=== PATIENT | female | born 1955 | race African-American/Black ===

== ENCOUNTER 2021-04-08 15:04 | Inpatient (IN) | payer OTHER, MEDICAID ==
[~2021-04-08] VITALS: Ht 165.1 cm; Wt 70.3 kg
[2021-04-08] MEDS ORDERED: ONDANSETRON HCL 4MG/2ML INJ IV STA (15:33)
[2021-04-08] MEDS ORDERED: MORPHINE SULFATE 4 MG/ML CPJ (NOT FOR IM USE) IV STA (15:33)
[2021-04-08] MEDS ORDERED: DEXAMETHASONE 10 MG/ML VIAL IV ONE (15:45)
[2021-04-08] MEDS ORDERED: SODIUM CHLORIDE 0.9% 1,000 ML IV ONE (15:45)
[2021-04-08 16:28] LABS: HEMATOCRIT. 36.8 % (36.0-48.0); HEMOGLOBIN. 12.3 g/dL (12.0-16.0); MEAN CORPUSCULAR HEMOGLOBIN 28.2 pg (28.0-32.0); MEAN CORPUSCULAR VOLUME 84.7 fL (81.0-99.0); MEAN PLATELET VOLUME 7.6 fl (7.4-10.4); PLATELET 352 x1000/uL (130-400); RED BLOOD CELL COUNT 4.35 mill/uL (4.2-5.4); RED CELL DISTRIBUTION WIDTH 15.3 % (11.6-14.6)
[2021-04-08 16:35] LABS: CHLORIDE 88 mEq/L (98-107)
[2021-04-08 16:36] LABS: INR 1.2; PROTHROMBIN TIME 12.3 sec (9.6-11.0)
[2021-04-08] MEDS ORDERED: INSULIN REGULAR (HUMULIN R) 300UNITS/3ML VIAL SUBCUT NR (17:00)
[2021-04-08] MEDS ORDERED: SODIUM CHLORIDE 0.9% 1000ML BAG (SEPSIS BOLUS) IV ONE (17:00)
[2021-04-08] MEDS ORDERED: AZITHROMYCIN 500MG/250ML 250 ML IV NR (17:00)
[2021-04-08] MEDS ORDERED: POTASSIUM CHLORIDE 20MEQ TABLET SR PO NR (17:00)
[2021-04-08] MEDS ORDERED: CEFTRIAXONE 1 G PREMIX 50 ML IV NR (17:00)
[2021-04-08 17:04] LABS: NUCLEATED RED BLOOD CELLS 1 /100 WBC; PLATELET ESTIMATE NORMAL
[2021-04-08 17:33] LABS: CLARITY URINE CLOUDY (CLEAR); COLOR URINE RED (YELLOW); KETONES URINE TRACE (NEGATIVE); LEUKOCYTE ESTERASE URINE 1+ (NEGATIVE); NITRITE URINE NEGATIVE (NEGATIVE); OCCULT BLOOD URINE 3+ (NEGATIVE); PROTEIN URINE 2+ (NEGATIVE); SPECIFIC GRAVITY URINE 1.022 (1.005-1.030)
[2021-04-08] MEDS: DEXT 5%/LACTATED RINGERS 1,000 ML IV SCH (20:15)
[2021-04-08 23:40] VITALS: BP 198/111
[2021-04-09] VITALS (7 sets, daily range): BP systolic 153–198; BP diastolic 74–113
[2021-04-09] MEDS ORDERED: DEXAMETHASONE 10 MG/ML VIAL IV SCH
[2021-04-09] MEDS ORDERED: ACETAMINOPHEN 325MG TABLET PO PRN (00:15)
[2021-04-09] MEDS ORDERED: DEXTROSE 50% WATER 50ML SYRINGE IV PRN (00:15)
[2021-04-09] MEDS ORDERED: NALOXONE HCL 0.4 MG/ML 1ML VIAL IV PRN (00:30)
[2021-04-09] MEDS: MORPHINE SULFATE 2 MG/ML CPJ (NOT FOR IM USE) IV PRN ×4 (00:39→20:42)
[2021-04-09] MEDS ORDERED: ZOLPIDEM TARTRATE 5MG TABLET PO PRN (01:00)
[2021-04-09] MEDS: CLONIDINE 0.1MG TABLET PO PRN (01:05)
[2021-04-09] MEDS: DEXAMETHASONE 10 MG/ML VIAL IV SCH ×3 (05:32→17:33)
[2021-04-09] MEDS: DEXT 5%/LACTATED RINGERS 1,000 ML IV SCH (05:32)
[2021-04-09] MEDS: PANTOPRAZOLE 40MG DR TABLET PO SCH (06:10)
[2021-04-09] MEDS: BLOOD SUGAR DIAGNOSTIC STRIP TEST SCH ×4 (06:11→21:19)
[2021-04-09] MEDS: INSULIN LISPRO 100 UNITS/ML SUBCUT SCH ×5 (06:11→21:20)
[2021-04-09 07:10] LABS: CHLORIDE 92 mEq/L (98-107)
[2021-04-09 07:21] LABS: LDL CHOLESTEROL 51 mg/dL (5-100)
[2021-04-09 07:23] LABS: HDL CHOLESTEROL 61 mg/dL (40-59)
[2021-04-09 07:27] LABS: HEMATOCRIT 36.4 % (36.0-48.0); HEMOGLOBIN 12.3 g/dL (12.0-16.0); MEAN CORPUSCULAR HEMOGLOBIN 28.7 pg (28.0-32.0); MEAN CORPUSCULAR VOLUME 84.6 fL (81.0-99.0); PLATELET 322 x1000/uL (130-400); RED BLOOD CELL COUNT 4.31 mill/uL (4.2-5.4); RED CELL DISTRIBUTION WIDTH 14.9 % (11.6-14.6)
[2021-04-09] MEDS: METOPROLOL TARTRATE 50MG TABLET PO SCH ×2 (08:33→20:42)
[2021-04-09] MEDS ORDERED: AMLODIPINE 10MG TABLET PO SCH (09:00)
[2021-04-09] MEDS ORDERED: ENOXAPARIN 40MG/0.4ML SYR SUBCUT SCH (09:00)
[2021-04-09] MEDS: INSULIN GLARGINE UD 100 UNITS/ML SYR SUBCUT SCH ×2 (09:33→21:20)
[2021-04-09] MEDS ORDERED: GADOTERATE MEGLUMINE 5 MMOL/10 ML VIAL IV ONE (11:01)
[2021-04-09] MEDS ORDERED: PNEUMOCOCCAL 23-VAL P-SAC VAC 0.5 ML IM ONE (12:00)
[2021-04-09] MEDS: CEFTRIAXONE 1,000 MG in DEXTROSE 5% WATER 50 ML IV SCH (12:29)
[2021-04-09] MEDS: DILTIAZEM HCL 60MG TABLET PO SCH (17:33)
[2021-04-09] MEDS: SODIUM CHLORIDE 0.9% 1,000 ML IV SCH (17:38)
[2021-04-10] VITALS (42 sets, daily range): BP systolic 97–161; BP diastolic 31–80
[2021-04-10] MEDS: DILTIAZEM HCL 60MG TABLET PO SCH ×2 (00:35→06:00)
[2021-04-10] MEDS: CLONIDINE 0.1MG TABLET PO PRN (00:35)
[2021-04-10] MEDS: DEXAMETHASONE 10 MG/ML VIAL IV SCH ×2 (00:39→06:10)
[2021-04-10] MEDS: MORPHINE SULFATE 2 MG/ML CPJ (NOT FOR IM USE) IV PRN ×4 (00:49→21:19)
[2021-04-10] MEDS ORDERED: LIDOCAINE HCL/EPINEPHRINE 1%-EPI 1:100,000 20 ML VIAL ONE ×2 (05:58→10:00)
[2021-04-10] MEDS ORDERED: THROMBIN (BOVINE) 5000 UNITS/VIAL TOP ONE (05:58)
[2021-04-10] MEDS: SODIUM CHLORIDE 0.9% 1,000 ML IV SCH ×2 (06:09→16:17)
[2021-04-10] MEDS: BLOOD SUGAR DIAGNOSTIC STRIP TEST SCH ×4 (06:15→20:53)
[2021-04-10] MEDS: PANTOPRAZOLE 40MG DR TABLET PO SCH (06:16)
[2021-04-10] MEDS: INSULIN LISPRO 100 UNITS/ML SUBCUT SCH ×4 (06:16→21:20)
[2021-04-10] MEDS ORDERED: GENTAMICIN SULF 40MG/ML 2ML VIAL ONE ×2 (06:23→08:08)
[2021-04-10 07:53] LABS: HEMATOCRIT. 32.2 % (36.0-48.0); HEMOGLOBIN. 10.7 g/dL (12.0-16.0); MEAN CORPUSCULAR VOLUME 84.4 fL (81.0-99.0); MEAN PLATELET VOLUME 8.1 fl (7.4-10.4); PLATELET 299 x1000/uL (130-400); RED BLOOD CELL COUNT 3.81 mill/uL (4.2-5.4); RED CELL DISTRIBUTION WIDTH 15.1 % (11.6-14.6)
[2021-04-10 08:00] LABS: CHLORIDE 96 mEq/L (98-107)
[2021-04-10] MEDS: METOPROLOL TARTRATE 50MG TABLET PO SCH ×2 (09:00→20:53)
[2021-04-10] MEDS ORDERED: DEXT 5%/LACTATED RINGERS 1,000 ML IV SCH (10:00)
[2021-04-10] MEDS ORDERED: NICARDIPINE 100 MG in SODIUM CHLORIDE 0.9% 60 ML IV PRN (10:00)
[2021-04-10] MEDS ORDERED: KETAMINE HCL 50 MG/ML 10ML ONE (10:02)
[2021-04-10] MEDS ORDERED: ACETAMINOPHEN 500MG TABLET ONE (10:06)
[2021-04-10] MEDS ORDERED: PROPOFOL 10MG/ML 100ML 100 ML IV ONE (10:07)
[2021-04-10] MEDS ORDERED: NICARDIPINE 40MG/200ML PREMIX 200 ML IV ONE (10:08)
[2021-04-10] MEDS ORDERED: ONDANSETRON HCL 4MG/2ML INJ ONE (10:20)
[2021-04-10] MEDS ORDERED: METOCLOPRAMIDE HCL 10MG/2ML VIAL ONE (10:20)
[2021-04-10] MEDS ORDERED: PHENYLEPHRINE HCL 10 MG/ML 1ML (IV VIAL) IV ONE (10:22)
[2021-04-10] MEDS ORDERED: FENTANYL CITRATE/PF 50MCG/ML 2ML VIAL ONE (10:30)
[2021-04-10] MEDS ORDERED: LIDOCAINE HCL 1% 10 MG/ML 10ML VIAL ONE (10:30)
[2021-04-10] MEDS ORDERED: MAGNESIUM 2 G PREMIX 50 ML IV SCH (11:00)
[2021-04-10] MEDS ORDERED: DEXAMETHASONE 4MG/ML 1ML VIAL ONE (11:01)
[2021-04-10] MEDS: DILTIAZEM HCL 90MG TABLET PO SCH ×2 (12:00→17:10)
[2021-04-10] MEDS ORDERED: GLYCOPYRROLATE 0.2 MG/ML 2ML VIAL ONE (12:09)
[2021-04-10] MEDS ORDERED: NEOSTIGMINE METHYLSULFATE 1MG/ML 10 ML VIAL ONE (12:09)
[2021-04-10] MEDS ORDERED: LIDOCAINE HCL 2% JELLY 5ML ONE (12:19)
[2021-04-10] MEDS ORDERED: CALCIUM CHLORIDE 1GM/10ML SYR IV ONE (12:27)
[2021-04-10] MEDS ORDERED: FAMOTIDINE 20MG/2ML VIAL IV NR (13:15)
[2021-04-10] MEDS ORDERED: CEFAZOLIN SODIUM 1000MG/VIAL IV SCH (14:00)
[2021-04-10] MEDS: HYDROMORPHONE HCL/PF 2MG/ML CPJ IV PRN ×3 (16:00→23:22)
[2021-04-10] MEDS: CEFTRIAXONE 1,000 MG in DEXTROSE 5% WATER 50 ML IV SCH (16:13)
[2021-04-10] MEDS: INSULIN GLARGINE UD 100 UNITS/ML SYR SUBCUT SCH ×2 (16:15→21:19)
[2021-04-10] MEDS: DEXAMETHASONE 4MG/ML 1ML VIAL IV SCH ×3 (16:17→23:21)
[2021-04-10] MEDS ORDERED: IPRATROPIUM/ALBUTEROL 0.5-3(2.5)MG/3ML NEB HHN PRN (16:45)
[2021-04-10 17:00] LABS: PLATELET ESTIMATE NORMAL
[2021-04-10] MEDS: CEFAZOLIN 1000MG PREMIX 50 ML IV SCH (17:21)
[2021-04-11] VITALS (82 sets, daily range): BP systolic 91–159; BP diastolic 21–135
[2021-04-11] MEDS: CEFAZOLIN 1000MG PREMIX 50 ML IV SCH ×3 (02:03→17:45)
[2021-04-11] MEDS: SODIUM CHLORIDE 0.9% 1,000 ML IV SCH ×3 (02:04→20:29)
[2021-04-11] MEDS: HYDROMORPHONE HCL/PF 2MG/ML CPJ IV PRN ×6 (02:11→21:20)
[2021-04-11] MEDS: DILTIAZEM HCL 90MG TABLET PO SCH ×5 (05:40→23:44)
[2021-04-11] MEDS: BLOOD SUGAR DIAGNOSTIC STRIP TEST SCH ×4 (05:41→21:02)
[2021-04-11] MEDS: PANTOPRAZOLE 40MG DR TABLET PO SCH (05:41)
[2021-04-11 05:57] LABS: CHLORIDE 103 mEq/L (98-107)
[2021-04-11] MEDS: DEXAMETHASONE 4MG/ML 1ML VIAL IV SCH ×4 (06:07→23:44)
[2021-04-11 06:08] LABS: HEMATOCRIT. 28.9 % (36.0-48.0); HEMOGLOBIN. 9.6 g/dL (12.0-16.0); MEAN CORPUSCULAR HEMOGLOBIN 28.8 pg (28.0-32.0); MEAN CORPUSCULAR VOLUME 86.5 fL (81.0-99.0); MEAN PLATELET VOLUME 7.8 fl (7.4-10.4); PLATELET 298 x1000/uL (130-400); RED BLOOD CELL COUNT 3.35 mill/uL (4.2-5.4)
[2021-04-11] MEDS: INSULIN LISPRO 100 UNITS/ML SUBCUT SCH ×4 (06:09→21:07)
[2021-04-11 10:53] LABS: PLATELET ESTIMATE NORMAL
[2021-04-11] MEDS: INSULIN GLARGINE UD 100 UNITS/ML SYR SUBCUT SCH ×2 (11:33→21:06)
[2021-04-11] MEDS: CLONIDINE 0.1MG TABLET PO PRN (13:03)
[2021-04-11] MEDS: CEFTRIAXONE 1,000 MG in DEXTROSE 5% WATER 50 ML IV SCH (13:55)
[2021-04-12] VITALS: BP 135/69
[2021-04-12] MEDS: CEFAZOLIN 1000MG PREMIX 50 ML IV SCH ×2 (02:49→11:32)
[2021-04-12 04:00] VITALS: BP 136/74
[2021-04-12] MEDS: HYDROMORPHONE HCL/PF 2MG/ML CPJ IV PRN (04:37)
[2021-04-12] MEDS: DEXAMETHASONE 4MG/ML 1ML VIAL IV SCH ×2 (05:26→12:19)
[2021-04-12] MEDS: SODIUM CHLORIDE 0.9% 1,000 ML IV SCH (05:26)
[2021-04-12] MEDS: DILTIAZEM HCL 90MG TABLET PO SCH ×3 (05:27→18:16)
[2021-04-12] MEDS: PANTOPRAZOLE 40MG DR TABLET PO SCH (07:02)
[2021-04-12] MEDS: BLOOD SUGAR DIAGNOSTIC STRIP TEST SCH ×4 (07:04→21:21)
[2021-04-12 08:00] VITALS: BP 117/57
[2021-04-12] MEDS: INSULIN LISPRO 100 UNITS/ML SUBCUT SCH ×4 (08:32→21:20)
[2021-04-12] MEDS: MORPHINE SULFATE 2 MG/ML CPJ (NOT FOR IM USE) IV PRN (10:12)
[2021-04-12] MEDS: INSULIN GLARGINE UD 100 UNITS/ML SYR SUBCUT SCH ×2 (10:30→21:21)
[2021-04-12 12:00] VITALS: BP 135/70
[2021-04-12] MEDS: CEFTRIAXONE 1,000 MG in DEXTROSE 5% WATER 50 ML IV SCH (12:20)
[2021-04-12] MEDS ORDERED: HYDROCODONE/ACETAMINOPHEN 10/325MG TABLET PO PRN ×2 (12:45→15:15)
[2021-04-12] MEDS: IPRATROPIUM/ALBUTEROL 0.5-3(2.5)MG/3ML NEB HHN SCH ×2 (14:49→21:11)
[2021-04-12] MEDS: HYDROCODONE/ACETAMINOPHEN 10/325MG TABLET PO PRN ×2 (15:52→22:28)
[2021-04-12 16:00] VITALS: BP 146/67
[2021-04-12 20:00] VITALS: BP 138/64
[2021-04-13] VITALS (8 sets, daily range): BP systolic 122–143; BP diastolic 63–74
[2021-04-13] MEDS: DILTIAZEM HCL 90MG TABLET PO SCH ×4 (01:05→18:08)
[2021-04-13] MEDS: IPRATROPIUM/ALBUTEROL 0.5-3(2.5)MG/3ML NEB HHN SCH ×3 (02:11→14:23)
[2021-04-13] MEDS: PANTOPRAZOLE 40MG DR TABLET PO SCH (06:22)
[2021-04-13] MEDS: BLOOD SUGAR DIAGNOSTIC STRIP TEST SCH ×4 (06:23→21:51)
[2021-04-13] MEDS: HYDROCODONE/ACETAMINOPHEN 10/325MG TABLET PO PRN ×4 (06:34→21:42)
[2021-04-13] MEDS: INSULIN LISPRO 100 UNITS/ML SUBCUT SCH ×4 (08:28→22:04)
[2021-04-13] MEDS ORDERED: DEXAMETHASONE 4MG/ML 1ML VIAL IV SCH (09:00)
[2021-04-13] MEDS: INSULIN GLARGINE UD 100 UNITS/ML SYR SUBCUT SCH ×2 (10:10→22:04)
[2021-04-13] MEDS: CEFTRIAXONE 1,000 MG in DEXTROSE 5% WATER 50 ML IV SCH (12:48)
[2021-04-13] MEDS: DOCUSATE SODIUM 250MG CAPSULE PO SCH (14:28)
[2021-04-13 16:51] LABS: HEMATOCRIT. 27.7 % (36.0-48.0); HEMOGLOBIN. 9.3 g/dL (12.0-16.0); MEAN CORPUSCULAR HEMOGLOBIN 28.2 pg (28.0-32.0); MEAN CORPUSCULAR VOLUME 84.2 fL (81.0-99.0); MEAN PLATELET VOLUME 7.8 fl (7.4-10.4); PLATELET 296 x1000/uL (130-400); RED BLOOD CELL COUNT 3.29 mill/uL (4.2-5.4); RED CELL DISTRIBUTION WIDTH 14.9 % (11.6-14.6)
[2021-04-13 17:05] LABS: CHLORIDE 98 mEq/L (98-107)
[2021-04-14] VITALS: BP 142/62
[2021-04-14] MEDS: IPRATROPIUM/ALBUTEROL 0.5-3(2.5)MG/3ML NEB HHN SCH ×4 (00:38→21:53)
[2021-04-14] MEDS: DILTIAZEM HCL 90MG TABLET PO SCH ×4 (00:40→17:37)
[2021-04-14 04:00] VITALS: BP 152/77
[2021-04-14] MEDS: PANTOPRAZOLE 40MG DR TABLET PO SCH (06:49)
[2021-04-14] MEDS: HYDROCODONE/ACETAMINOPHEN 10/325MG TABLET PO PRN ×3 (06:50→17:37)
[2021-04-14] MEDS: BLOOD SUGAR DIAGNOSTIC STRIP TEST SCH ×4 (07:20→21:00)
[2021-04-14] MEDS: INSULIN LISPRO 100 UNITS/ML SUBCUT SCH ×4 (07:50→21:00)
[2021-04-14 08:00] VITALS: BP 139/75
[2021-04-14] MEDS: DOCUSATE SODIUM 250MG CAPSULE PO SCH (08:29)
[2021-04-14 09:19] LABS: PLATELET ESTIMATE NORMAL
[2021-04-14] MEDS: INSULIN GLARGINE UD 100 UNITS/ML SYR SUBCUT SCH ×2 (10:08→22:16)
[2021-04-14 12:00] VITALS: BP 146/84
[2021-04-14] MEDS: CEFTRIAXONE 1,000 MG in DEXTROSE 5% WATER 50 ML IV SCH (12:56)
[2021-04-14 16:00] VITALS: BP 122/60
[2021-04-14 20:00] VITALS: BP 110/75
[2021-04-14] MEDS: MORPHINE SULFATE 15MG TABLET SR PO SCH (22:09)
[2021-04-15] VITALS: BP 134/75
[2021-04-15] MEDS: DILTIAZEM HCL 90MG TABLET PO SCH ×4 (00:28→18:39)
[2021-04-15] MEDS: HYDROCODONE/ACETAMINOPHEN 10/325MG TABLET PO PRN ×3 (00:29→15:02)
[2021-04-15 04:00] VITALS: BP 136/82
[2021-04-15] MEDS: BLOOD SUGAR DIAGNOSTIC STRIP TEST SCH ×4 (07:03→20:34)
[2021-04-15] MEDS: INSULIN LISPRO 100 UNITS/ML SUBCUT SCH ×4 (07:03→20:34)
[2021-04-15 08:00] VITALS: BP 139/90
[2021-04-15] MEDS: IPRATROPIUM/ALBUTEROL 0.5-3(2.5)MG/3ML NEB HHN SCH ×3 (08:25→20:44)
[2021-04-15] MEDS: DOCUSATE SODIUM 250MG CAPSULE PO SCH (09:28)
[2021-04-15] MEDS: FAMOTIDINE 20MG TABLET PO SCH (09:29)
[2021-04-15] MEDS: MORPHINE SULFATE 15MG TABLET SR PO SCH ×2 (09:29→20:34)
[2021-04-15] MEDS: INSULIN GLARGINE UD 100 UNITS/ML SYR SUBCUT SCH ×2 (10:00→22:00)
[2021-04-15 12:00] VITALS: BP 147/84
[2021-04-15 16:00] VITALS: BP 128/72
[2021-04-15 20:00] VITALS: BP 127/77
[2021-04-16] VITALS: BP 130/64
[2021-04-16] MEDS: DILTIAZEM HCL 90MG TABLET PO SCH ×4 (00:33→19:07)
[2021-04-16] MEDS: IPRATROPIUM/ALBUTEROL 0.5-3(2.5)MG/3ML NEB HHN SCH ×3 (01:50→20:56)
[2021-04-16 04:00] VITALS: BP 144/93
[2021-04-16] MEDS: HYDROCODONE/ACETAMINOPHEN 10/325MG TABLET PO PRN ×3 (05:19→19:17)
[2021-04-16] MEDS: BLOOD SUGAR DIAGNOSTIC STRIP TEST SCH ×4 (06:56→20:31)
[2021-04-16] MEDS: INSULIN LISPRO 100 UNITS/ML SUBCUT SCH ×4 (07:50→20:32)
[2021-04-16 08:00] VITALS: BP 127/85
[2021-04-16] MEDS: MORPHINE SULFATE 15MG TABLET SR PO SCH ×2 (08:52→20:32)
[2021-04-16] MEDS: FAMOTIDINE 20MG TABLET PO SCH (08:52)
[2021-04-16] MEDS: DOCUSATE SODIUM 250MG CAPSULE PO SCH (08:52)
[2021-04-16] MEDS: INSULIN GLARGINE UD 100 UNITS/ML SYR SUBCUT SCH ×2 (10:00→21:52)
[2021-04-16 12:00] VITALS: BP 142/80
[2021-04-16 16:00] VITALS: BP 143/83
[2021-04-16 20:00] VITALS: BP 144/86
[2021-04-17] VITALS: BP 141/85
[2021-04-17 04:00] VITALS: BP 139/81
[2021-04-17] MEDS: HYDROCODONE/ACETAMINOPHEN 10/325MG TABLET PO PRN ×3 (04:12→14:51)
[2021-04-17] MEDS: DILTIAZEM HCL 90MG TABLET PO SCH ×2 (06:17→13:44)
[2021-04-17] MEDS: BLOOD SUGAR DIAGNOSTIC STRIP TEST SCH ×2 (06:41→12:20)
[2021-04-17 08:00] VITALS: BP 158/92
[2021-04-17] MEDS: MORPHINE SULFATE 15MG TABLET SR PO SCH (09:00)
[2021-04-17] MEDS: IPRATROPIUM/ALBUTEROL 0.5-3(2.5)MG/3ML NEB HHN SCH ×2 (09:20→13:34)
[2021-04-17] MEDS: FAMOTIDINE 20MG TABLET PO SCH (09:28)
[2021-04-17] MEDS: DOCUSATE SODIUM 250MG CAPSULE PO SCH (09:29)
[2021-04-17] MEDS: INSULIN LISPRO 100 UNITS/ML SUBCUT SCH ×2 (09:47→12:50)
[2021-04-17] MEDS: INSULIN GLARGINE UD 100 UNITS/ML SYR SUBCUT SCH (10:00)
[2021-04-17 12:00] VITALS: BP 140/86
[2021-04-17 15:59] VITALS: BP 131/76
[2021-04-17 17:02] VITALS: BP 131/76
== END 2021-04-17 20:40 | disposition home or self-care (01) | DRG 853 ==
LOC: ER 15:04 → 7EST 20:03 → EDBEDREQ 20:12 → EDBEDREQSVC 20:12 → EDBEDREQTM 20:12 → ENRESERV 22:14 → 7EST 23:59 → MICUNO 04-10 14:45 → 6EST 04-11 22:25
PROVIDERS: ADMIT Internal Medicine; ATTEND Internal Medicine
PROC: 00BX0ZZ Excision of Thoracic Spinal Cord, Open Approach (ICD-10-PCS; principal; 2021-04-10)
PROC: 00NX0ZZ Release Thoracic Spinal Cord, Open Approach (ICD-10-PCS; 2021-04-10)
PROC: 4A11X4G Monitoring of Peripheral Nervous Electrical Activity, Intraoperative, External Approach (ICD-10-PCS; 2021-04-10)
PROC: 009U3ZZ Drainage of Spinal Canal, Percutaneous Approach (ICD-10-PCS; 2021-04-10)
DX: A41.9 Sepsis, unspecified organism (principal); E43 Unspecified severe protein-calorie malnutrition; G93.6 Cerebral edema; C34.90 Malignant neoplasm of unspecified part of unspecified bronchus or lung; N39.0 Urinary tract infection, site not specified; C78.7 Secondary malignant neoplasm of liver and intrahepatic bile duct; C79.31 Secondary malignant neoplasm of brain; C79.51 Secondary malignant neoplasm of bone; C79.89 Secondary malignant neoplasm of other specified sites; G82.22 Paraplegia, incomplete; G95.20 Unspecified cord compression; C79.49 Secondary malignant neoplasm of other parts of nervous system; E87.1 Hypo-osmolality and hyponatremia; E87.8 Other disorders of electrolyte and fluid balance, not elsewhere classified; I10 Essential (primary) hypertension; M41.9 Scoliosis, unspecified; M47.819 Spondylosis without myelopathy or radiculopathy, site unspecified; J44.9 Chronic obstructive pulmonary disease, unspecified; Z20.822 Contact with and (suspected) exposure to COVID-19; M48.02 Spinal stenosis, cervical region; M48.061 Spinal stenosis, lumbar region without neurogenic claudication; M51.27 Other intervertebral disc displacement, lumbosacral region; R32 Unspecified urinary incontinence; D49.7 Neoplasm of unspecified behavior of endocrine glands and other parts of nervous system; E11.9 Type 2 diabetes mellitus without complications; Z85.118 Personal history of other malignant neoplasm of bronchus and lung; Z87.891 Personal history of nicotine dependence; Z98.1 Arthrodesis status; Z68.25 Body mass index [BMI] 25.0-25.9, adult
CPT/HCPCS: 36415; 70553; 71045; 72070; 72146; 72147; 72156; 72158; 76000; 80048; 80053; 80061; 81003; 82962; 83036; 83605; 84145; 84484; 85025; 85027; 86850; 86900; 87426; 88331; 93005; 93306; 97110; 97162; 97166; 97530; 99291; A4565; A9577; J0456; J0690; J0696; J1100; J1170; J1580; J1815; J2270; J2370; J2405; J2704; J2710; J2765; J3010; J3475; J3490; J7030; J7050; J7060; J7121